=== PATIENT | male | born 1945 | race Caucasian/White ===

== ENCOUNTER 2022-04-06 14:06 | Emergency (ER) | payer OTHER ==
[~2022-04-06] VITALS: Ht 172.7 cm; Wt 75.0 kg
[2022-04-06] MEDS ORDERED: NAP5EC MT (20:42)
[2022-04-06 21:32] VITALS: BP 122/71
== END 2022-04-06 21:33 | disposition home or self-care (01) ==
LOC: ER 14:06
DX: S22.42XA Multiple fractures of ribs, left side, initial encounter for closed fracture (principal); I10 Essential (primary) hypertension; E78.00 Pure hypercholesterolemia, unspecified; F03.90 Unspecified dementia, unspecified severity, without behavioral disturbance, psychotic disturbance, mood disturbance, and anxiety; Z87.891 Personal history of nicotine dependence; Z79.01 Long term (current) use of anticoagulants; W01.190A Fall on same level from slipping, tripping and stumbling with subsequent striking against furniture, initial encounter; Y93.89 Activity, other specified; Y92.018 Other place in single-family (private) house as the place of occurrence of the external cause
CPT/HCPCS: 71045; 71250; 93005; 99284

== ENCOUNTER 2022-04-08 15:23 | Inpatient (IN) | payer OTHER ==
[~2022-04-08] VITALS: Ht 175.3 cm; Wt 86.5 kg
[~2022-04-08 15:23] MED LIST: NAP5EC MT
[2022-04-08 16:33] LABS: BASOPHILS % 0.2 % (0.0-2.0); EOSINOPHILS % 0.3 % (0.0-5.0); HEMOGLOBIN. 12.8 g/dL (14.0-18.0); LYMPHOCYTES % 17.3 % (20.0-50.0); MEAN CORPUSCULAR HEMOGLOBIN 32.2 pg (28.0-32.0); MEAN CORPUSCULAR VOLUME 93.3 fL (80.0-94.0); MEAN PLATELET VOLUME 7.4 fl (7.4-10.4); MONOCYTES % 8.3 % (2.0-8.0); NEUTROPHILS % 73.9 % (40.0-76.0); PLATELET 184 x1000/uL (130-400); RED BLOOD CELL COUNT 3.97 mill/uL (4.7-6.1); RED CELL DISTRIBUTION WIDTH 13.6 % (11.6-14.6)
[2022-04-08] MEDS ORDERED: SODIUM CHLORIDE 0.9% 1,000 ML IV ONE (17:15)
[2022-04-08 18:10] LABS: CREATINE KINASE 71 IU/L (39-308); ETHANOL BLOOD < 10 mg/dL
[2022-04-08 18:26] LABS: CHLORIDE 94 mEq/L (98-107)
[2022-04-08 19:13] LABS: CHLORIDE 95 mEq/L (98-107)
[2022-04-08 20:03] VITALS: BP 138/73
== END 2022-04-08 23:43 | disposition short-term general hospital (02) | DRG 884 ==
LOC: ER 15:23 → MICUSO 23:00
PROVIDERS: ADMIT Internal Medicine; ATTEND Internal Medicine
DX: R40.4 Transient alteration of awareness (principal); R53.1 Weakness; E78.00 Pure hypercholesterolemia, unspecified; F03.90 Unspecified dementia, unspecified severity, without behavioral disturbance, psychotic disturbance, mood disturbance, and anxiety; Z20.822 Contact with and (suspected) exposure to COVID-19; I10 Essential (primary) hypertension; Z79.899 Other long term (current) drug therapy; E86.0 Dehydration
CPT/HCPCS: 36415; 71045; 80053; 80307; 80320; 80329; 82140; 82550; 83880; 84443; 84484; 85025; 87426; 93005; 99285; C9803; J7030; G0480